=== PATIENT | female | born 1960 | race Caucasian/White ===

== ENCOUNTER 2020-02-16 06:33 | Day surgery (SDC) | payer MEDICAID ==
[2020-02-14 10:54] LABS: COVID AG,FIA SOURCE NASOPHARYNGEAL
[~2020-02-16] VITALS: Ht 152.4 cm; Wt 87.3 kg
[~2020-02-16 06:33] MED LIST: SODIUM CHLORIDE 0.9% 1,000 ML IV ONE; SODIUM CHLORIDE 0.9% 1,000 ML ONE
[2020-02-16] MEDS ORDERED: ATOR20TA86 PO ×2 (07:11→07:52)
[2020-02-16] MEDS ORDERED: LISI40TA4 PO (07:11)
[2020-02-16] MEDS ORDERED: GABA-1181 PO (07:11)
[2020-02-16] MEDS ORDERED: HYDR200T4 PO (07:11)
[2020-02-16] MEDS ORDERED: ALBU2SYR3 PO (07:11)
[2020-02-16] MEDS ORDERED: IPRAHFA IH (07:11)
[2020-02-16] MEDS ORDERED: MONT-35 PO (07:11)
[2020-02-16] MEDS ORDERED: UMEC62.5 IH (07:11)
[2020-02-16] MEDS ORDERED: DILT60 PO (07:11)
[2020-02-16] MEDS ORDERED: FLUT16H NASAL (07:11)
[2020-02-16] MEDS ORDERED: OMEP20 PO (07:11)
[2020-02-16] MEDS ORDERED: ALEN70TA65 PO (07:11)
[2020-02-16] MEDS ORDERED: FLUT1BLS10 IH (07:11)
[2020-02-16] MEDS ORDERED: ESCI10TA61 PO (07:11)
[2020-02-16] MEDS ORDERED: CALC-959 PO (07:11)
[2020-02-16] MEDS ORDERED: CETI-450 PO (07:19)
[2020-02-16] MEDS ORDERED: METF-960 PO (07:19)
[2020-02-16] MEDS ORDERED: FAMO20 PO (07:19)
[2020-02-16] MEDS ORDERED: METH-386 PO (07:19)
[2020-02-16] MEDS ORDERED: PROZ10 PO (07:19)
[2020-02-16] MEDS ORDERED: MIDAZOLAM HCL 2 MG/2 ML VIAL ONE (07:54)
[2020-02-16] MEDS ORDERED: FentaNYL CITRATE-PF 100 MCG/2 ML VIAL ONE (07:55)
[2020-02-16] MEDS ORDERED: MethylPREDNISolone SOD SUCC 125 MG/2 ML VIAL IVP ONE (08:45)
[2020-02-16] MEDS ORDERED: MethylPREDNISolone SOD SUCC 125 MG/2 ML VIAL ONE (09:13)
[2020-02-16] MEDS ORDERED: LIDOCAINE 4% 50 ML SOLUTION ONE (18:20)
[2020-02-16] MEDS ORDERED: LIDOCAINE 2% 5 ML JELLY ONE (18:20)
[2020-02-16] MEDS ORDERED: BENZOCAINE 20% 50 MCG/SPRAY 57 GM ONE (18:20)
[2020-02-16] MEDS ORDERED: ALBUTEROL SULFATE 2.5 MG/0.5 ML NEB SOLUTION NEB ONE (18:20)
[2020-02-16] MEDS ORDERED: LIDOCAINE 2% 30 ML JELLY ONE (18:20)
[2020-02-16] MEDS ORDERED: OXYGEN THERAPY IH SCH (20:00)
== END 2020-02-16 10:05 | disposition home or self-care (01) ==
LOC: SURGERY 06:33
PROVIDERS: ATTEND Internal Medicine Critical Care Medicine
DX: J38.4 Edema of larynx (principal); B37.0 Candidal stomatitis; Z20.828 Contact with and (suspected) exposure to other viral communicable diseases
CPT/HCPCS: 31623; 31624; 71045; 87015; 87070; 87101; 87206; 87220; 87426; 88184; 88185; 93005; C9803; J2250; J2930; J3010; J7030; 87205; 88108; 88312; J7613; Z7610

== ENCOUNTER 2021-09-10 05:52 | Day surgery (SDC) | payer MEDICAID ==
[~2021-09-10] VITALS: Ht 157.5 cm; Wt 85.4 kg
[~2021-09-10 05:52] MED LIST changes: +ALBU2SYR3 PO; +ALEN70TA65 PO; +ATOR20TA86 PO; +CALC-959 PO; +DILT60TA4 PO; +ESCI10 PO; +FLUT16H NASAL; +FLUT1BLS10 IH; +GABA-1181 PO; +HYDR200T4 PO; +IPRAHFA IH; +LISI40TA9 PO; +MONT-35 PO; +OMEP20 PO; -SODIUM CHLORIDE 0.9% 1,000 ML IV ONE; -SODIUM CHLORIDE 0.9% 1,000 ML ONE; +UMEC62.5 IH
[2021-09-10] MEDS ORDERED: BENZOCAINE 20% 50 MCG/SPRAY 57 GM TP ONE (05:53)
[2021-09-10] MEDS ORDERED: LIDOCAINE 2% 5 ML JELLY TP ONE (05:53)
[2021-09-10] MEDS ORDERED: LIDOCAINE 4% 50 ML SOLUTION TP ONE (05:53)
[2021-09-10 06:48] LABS: COVID AG,FIA SOURCE NASAL SWAB
[2021-09-10] MEDS ORDERED: SODIUM CHLORIDE 0.9% 1,000 ML ONE (06:56)
[2021-09-10] MEDS ORDERED: SODIUM CHLORIDE 0.9% 1,000 ML IV ONE (07:00)
[2021-09-10] MEDS ORDERED: FentaNYL CITRATE PF 100 MCG/2 ML VIAL ONE (07:26)
[2021-09-10] MEDS ORDERED: MIDAZOLAM HCL 5 MG/ML VIAL ONE (07:26)
[2021-09-10] MEDS ORDERED: SODIUM CHLORIDE 0.9% 10 ML ONE (08:23)
[2021-09-10] MEDS ORDERED: MethylPREDNISolone SOD SUCC 125 MG/2 ML VIAL IVP ONE (09:15)
[2021-09-10] MEDS ORDERED: MethylPREDNISolone SOD SUCC 125 MG/2 ML VIAL ONE (10:10)
[2021-09-10] MEDS ORDERED: OXYGEN THERAPY IH SCH (20:00)
== END 2021-09-10 12:00 | disposition home or self-care (01) ==
LOC: SURGERY 05:52
PROVIDERS: ATTEND Internal Medicine Critical Care Medicine
DX: J38.4 Edema of larynx (principal); B37.0 Candidal stomatitis; J44.9 Chronic obstructive pulmonary disease, unspecified; Z98.890 Other specified postprocedural states; Z88.0 Allergy status to penicillin; Z79.899 Other long term (current) drug therapy
CPT/HCPCS: 31623; 31624; 71045; 87015; 87070; 87101; 87206; 87220; 87426; 88108; 88184; 88185; 88305; C9803; J2250; J2930; J3010; J7030; Z7610